=== PATIENT | female | born 1990 | race African-American/Black ===

== ENCOUNTER 2020-03-30 14:35 | Emergency (ER) | payer OTHER ==
[2020-03-30] MEDS ORDERED: Ondansetron ODT 4 MG TAB ONE (14:45)
[2020-03-30] MEDS ORDERED: Ibuprofen 200 MG TAB ONE (14:57)
--- NOTE | 2020-03-30 17:04 | RAD ---
SINGLE VIEW CHEST: Date: 03/30/2020 COMPARISON: None. HISTORY: Diarrhea with weakness, chills, and cough. FINDINGS: Single view of the chest shows a normal sized cardiomediastinal silhouette. There is no evidence of c onsolidation, mass, or pleural effusion. The bones are unremarkable. IMPRESSION: No evidence of acute cardiopulmonary disease. POS: [facility]
[2020-03-31 11:45] LABS: SARS-CoV-2 MS2 Positive; SARS-CoV-2 N Gene Negative; SARS-CoV-2 S Gene Negative; SARS-CoV-2 by NAA Not Detected (NotDetected); SARS-CoV-2 orf1ab Negative
== END 2020-03-30 15:50 | disposition home or self-care (01) ==
LOC: NAV ERS 14:35
DX: B34.9 Viral infection, unspecified (principal); Z20.828 Contact with and (suspected) exposure to other viral communicable diseases; E28.2 Polycystic ovarian syndrome; G43.909 Migraine, unspecified, not intractable, without status migrainosus; Z79.899 Other long term (current) drug therapy
CPT/HCPCS: 71045; 87635; Q0162; U0003